=== PATIENT | female | born 2000 | race Two or more races ===

== ENCOUNTER 2024-03-07 02:08 | Emergency (ER) | payer MEDICAID, OTHER ==
[~2024-03-07] VITALS: Ht 165.1 cm; Wt 95.0 kg
[2024-03-07 02:30] VITALS: PULSE 96; RESP 18; TEMP 97; O2SAT 97
[2024-03-07] MEDS ORDERED: fentaNYL CITRATE 100 MCG/2 ML VL IV ONE (02:30)
[2024-03-07] MEDS: KETOROLAC TROMETH 30 MG/ML 1ML VIAL IV ONE (03:09)
[2024-03-07] MEDS: IOHEXOL 300 MG/ML 100ML BOTTLE IJ ONE (03:40)
[2024-03-07 04:03] LABS: Urine Bacteria FEW /hpf (None Seen); Urine Blood Negative /uL (Negative); Urine Clarity Clear (Clear); Urine Color Light-Yellow (Yellow); Urine Protein, UAD Negative (Negative); Urine Specific Gravity 1.048 (1.001-1.035); Urine Urobilinogen Normal (Negative); Urine WBC 6 /hpf (0 - 5)
[2024-03-07 04:34] VITALS: BP 149/85; PULSE 85; RESP 18; O2SAT 97
[2024-03-07] MEDS: NITROFURANTOIN 100 mg CAP PO ONE (04:46)
[2024-03-07] MEDS ORDERED: IBUP200T76 PO (05:00)
[2024-03-07] MEDS ORDERED: HYDR-4798 PO (05:00)
== END 2024-03-07 05:20 | disposition home or self-care (01) ==
LOC: EDBD 02:08 → ER 02:08
DX: M79.9 Soft tissue disorder, unspecified (principal); F17.290 Nicotine dependence, other tobacco product, uncomplicated; V89.2XXA Person injured in unspecified motor-vehicle accident, traffic, initial encounter; Y93.89 Activity, other specified; Y92.89 Other specified places as the place of occurrence of the external cause; Y99.8 Other external cause status
CPT/HCPCS: 70450; 71260; 72125; 72128; 72131; 73060; 73090; 73560; 74177; 81001; 96374; 99285; J1885; Q9967